=== PATIENT | male | born 1965 | race Caucasian/White ===

== ENCOUNTER 2019-07-22 21:01 | Day surgery (SDC) | payer BC, OTHER ==
[~2019-07-22 21:01] MED LIST: Dexamethasone 20 MG/5 ML VIAL ONE; Glycopyrrolate 0.2 MG/ML 5 ML SYRINGE ONE; Ketorolac Tromethamine 30 MG/ML VIAL ONE; Lidocaine 1% PF 5 ML VIAL ONE; Ondansetron PF 4 MG/2 ML Vial ONE; PHENYLEPHRINE-NS 100 MCG/ML 10 ML SYRINGE ONE; PROPOFOL 200 MG/20 ML VIAL ONE; Rocuronium Bromide 10 MG/ML (10ML VIAL) ONE; Succinylcholine Chloride 20 MG/ML 10 ml SYRINGE FS ONE
[2019-07-22] MEDS ORDERED: CEFAZOLIN 1 GM VIAL ONE (21:09)
--- NOTE | 2019-07-22 21:30 | CT ---
CT Brain WO Con HISTORY: Head injury, kicked by a horse. COMPARISON: None. FINDINGS: The ventricular and cisternal system is within normal limits. There are no signs of intrace rebral hemorrhage or extra-axial fluid collections. The mastoid air cells and visualized sinuses are clear. IMPRESSION: No acute intracranial abnormalities. Findings telephoned to Dr. Meeks at 2127 hours.
--- NOTE | 2019-07-22 21:33 | CT ---
CT Facial Bones WO Con HISTORY: Trauma to face. Kicked by horse. COMPARISON: None. FINDINGS: There is a comminuted fracture of the nasal bone and a segmental fracture of the nasal sept um. The zygomatic arches are intact. Pterygoid processes are intact. Mucosal changes seen in both maxillary and ethmoid air cells but no air-fluid levels. There is no azael dence of orbital or maxillary sinus fracture. The mandible is intact. Condyles are in normal position. IMPRESSION: 1. Comminuted nasal bone and nasal septal fracture. 2. Findings telephoned to Dr. Meeks at 2137 hours.
[2019-07-22] MEDS ORDERED: Fentanyl 100 MCG/2 ML VIAL ONE (22:47)
[2019-07-22] MEDS ORDERED: Bupivacaine HCl 0.5%/Epinephrine 1:200,000/PF 30 ml Vial ONE (23:01)
[2019-07-22] MEDS ORDERED: Ophthalmic Irrigation Solution 30 ML ONE (23:39)
[2019-07-23] MEDS ORDERED: Fentanyl 100 MCG/2 ML VIAL ONE (01:09)
[2019-07-23] MEDS ORDERED: HYDROcodone/Acetaminophen 5/325 mg Tablet ONE (01:27)
--- NOTE | 2019-07-23 04:24 | CON ---
DATE OF CONSULTATION: 07/22/2019 CHIEF COMPLAINT: I am seeing Mr. Atkins in consultation at the request of Dr. Kiko Meeks for evaluation and treatment of a nasal trauma. HISTORY OF PRESENT ILLNESS: The patient is a 53-year-old man, who was kicked by a horse in the nose. He had no loss of consciousness. He presented to the emergency department and was noted to have a complex laceration to the nose. CT scans were performed, and his cervical spine was cleared clinically. The patient denies any diplopia. He denies any malocclusion or loose teeth. He denies chronic sinonasal complaints. He denies other ear, nose, or throat issues at this time. PAST MEDICAL HISTORY: Includes coronary artery disease, status post aortocoronary bypass in 2005. He is currently taking Plavix. Otherwise, medical history and medications are noncontributory and were reviewed per the emergency department notes without any changes noted. REVIEW OF SYSTEMS: Reviewed on the intake and other than what was noted in the history of present illness is otherwise negative. PHYSICAL EXAMINATION: GENERAL: The patient is resting comfortably in the emergency department. He is alert and oriented. He is in no distress. HEENT: The head is normocephalic. The parotid and submandibular glands are smooth. There is normal facial tone. Eyes, extraocular movements are intact. Pupils are equal, round, and reactive to light. External ears are unremarkable. External nose shows a tangential laceration over the dorsum as well as through the left nasal ala. The flap was elevated, and he does have exposed upper and lower lateral cartilages. The intranasal exam is not able to be seen because of clot. Ear canals are clear. Ear drums are normal. Oral cavity; lips, teeth, and gums are in good repair. Hard and soft palates are normal. Mucosa is pink and moist. Posterior oropharynx reveals pink and moist mucosa without lesions or mass or asymmetry. NECK: There is no mass or thyromegaly. Trachea is midline. There is no stridor. LYMPHATIC: No cervical lymphadenopathy. Cranial nerves 3 through 12 are intact. LUNGS: Clear to auscultation bilaterally. HEART: Regular rate and rhythm. IMAGING DATA: Reviewed. The CT of the face shows a comminuted nasal fracture and a septal fracture. There appears to be no other bony injury or blood in the sinuses. IMPRESSION: 1. Complex laceration of the nose. 2. Open nasal fracture. 3. Comminuted nasal septal fracture. PLAN: Discuss the findings with the patient and I recommend we take him to the operating room for clean out and repair. Risks and benefits of surgery were discussed with the patient, and all questions were answered to his satisfaction and informed consent was obtained. The patient is to receive 2 g of Ancef preoperatively as well as to verify tetanus status. I anticipate him being able to go home after the surgery. Job ID: [id number]
--- NOTE | 2019-07-23 05:11 | OP ---
DATE OF PROCEDURE: 07/23/2019 PREOPERATIVE DIAGNOSES: 1. Complex laceration of the nose. 2. Open nasal fracture. 3. Comminuted septal fracture. POSTOPERATIVE DIAGNOSES: 1. Complex laceration of the nose. 2. Open nasal fracture. 3. Comminuted septal fracture. PROCEDURES PERFORMED: 1. Repair of complex laceration of the nose, 7 cm. 2. Closed reduction of nasal fracture. 3. Closed reduction of a septal fracture. HANDYPERSON: None. ANESTHESIA: General endotracheal anesthetic. BLOOD LOSS: 50 mL. FLUIDS: 800 mL crystalloid. FINDINGS: 1. Comminuted nasal pyramid fracture. 2. Comminuted septal fracture without laceration. 3. A tangential laceration of the nasal dorsum extending from the nasal tip up to about three-quarters of the way up to the lateral and the medial canthi bilaterally. He was missing a piece of the nasal tip skin, approximately 8 mm in diameter. SPECIMENS: None. COMPLICATIONS: None. IMPLANTS: Nasal tampons bilaterally. INDICATIONS FOR SURGERY: The patient was kicked by a horse and had an open complex fracture of the nose and nasal fracture and septal fracture. DESCRIPTION OF OPERATION: After properly identifying the patient, he was brought to the operating room, placed on the operating room table, and placed under adequate general endotracheal anesthetic without difficulty. A time-out was performed prior to beginning the procedure. The patient was prepped and draped in the usual sterile fashion. The wound was cleansed vigorously with Betadine scrub and then irrigated and then painted with Betadine paint, allowed to set for several minutes and then irrigated again. Hemostasis was obtained with Bovie as there were couple of small arterials that were pumping blood on the left side. The skin edges were then cleaned up a little bit with knife and scissors and then the wound was closed in a layered fashion using a 4-0 Monocryl in a buried fashion and then to approximate the deep tissues, both over the dorsum and along the laceration edges. I also used it to approximate the right nasal dome that was transected. The skin was then closed with 4-0 nylon in a simple interrupted fashion. When I closed the both lateral aspects, there was a defect on the nasal tip that really had no way of closing. I thought about trimming the whole edge up and doing an advancement flap, but I felt that that was not appropriate and would cause more deformity. So, I then just gently closed the skin edges and it came together pretty closely with just a small little dimple in the midline. I chose to do that rather than granulate it in. Next, the nasal cavity was suctioned of clot. I did not see any laceration or open cartilage. I then placed nasal tampons on each side of the septum. Next, a Lathrop splint was applied to the external nose. On the dorsum, it was trimmed appropriately. The skin prep was applied. Tape was applied and then, the Velcro side and then the aluminum side was placed on. At this point, the patient was turned back over to Anesthesia. The patient was awakened and extubated in the operating room and taken to recovery room in stable condition. Job ID: [id number]
== END 2019-07-23 02:18 | disposition home or self-care (01) ==
LOC: ERS 21:01 → SDC/OP 23:16
PROVIDERS: ATTEND Otolaryngology
PROC: 0NSBXZZ Reposition Nasal Bone, External Approach (ICD-10-PCS; principal; 2019-07-23)
PROC: 09QKXZZ Repair Nasal Mucosa and Soft Tissue, External Approach (ICD-10-PCS; principal; 2019-07-23)
DX: S02.2XXB Fracture of nasal bones, initial encounter for open fracture (principal); I10 Essential (primary) hypertension; I25.10 Atherosclerotic heart disease of native coronary artery without angina pectoris; E11.9 Type 2 diabetes mellitus without complications; E78.5 Hyperlipidemia, unspecified; Z79.02 Long term (current) use of antithrombotics/antiplatelets; Z95.1 Presence of aortocoronary bypass graft; W55.12XA Struck by horse, initial encounter
CPT/HCPCS: 70450; 70486; 96365; G0390; J0670; J0690; J3010